=== PATIENT | male | born 1935 | race Caucasian/White ===

== ENCOUNTER 2016-06-14 20:56 | Inpatient (IN) | payer OTHER ==
[~2016-06-14] VITALS: Ht 172.7 cm; Wt 78.5 kg
[2016-06-14] MEDS: SODIUM CHLORIDE 0.9% 1,000ML IVBOLUS ONE ×2 (19:55→21:55)
[~2016-06-14 20:56] MED LIST: ALLO100T30 PO; AMLO10TA2 PO; ASPI-496 PO; MORP30TA3 PO; NITR0.4T8 SL; SENN8.6T4 PO; TADA5TAB2 PO
[2016-06-14] MEDS ORDERED: SODIUM CHLORIDE FLUSH 10ML SYR IVF ONE (21:30)
[2016-06-14] MEDS ORDERED: ALBUTEROL/IPRATROPIUM 2.5MG/0.5MG, 3 ML ONE (21:54)
[2016-06-14] MEDS ORDERED: methylPREDNISolone SOD SUCC 125 MG/2 ML IVP ONE (22:00)
[2016-06-14] MEDS ORDERED: ALBUTEROL/IPRATROPIUM 2.5MG/0.5MG, 3 ML NPPB ONE (22:00)
[2016-06-14] MEDS ORDERED: CEFTRIAXONE PMX 1GM/50ML 50 ML IVPB ONE (22:00)
[2016-06-14] MEDS ORDERED: AZITHROMYCIN 500 MG in SODIUM CHLORIDE 0.9% 250 ML IVPB ONE (22:00)
[2016-06-14 22:17] LABS: IS PT STATUS REG ER OR PRE ER? YES
[2016-06-14] MEDS ORDERED: CEFTRIAXONE PMX 1GM/50ML 50 ML ONE (22:27)
[2016-06-14] MEDS ORDERED: methylPREDNISolone SOD SUCC 125 MG/2 ML ONE (22:27)
[2016-06-14 22:34] LABS: ASPARTATE AMINO TRANSFERASE 27 U/L (15-37); BLOOD UREA NITROGEN 28 mg/dL (7-18)
[2016-06-14] MEDS ORDERED: ATOR20TA9 PO (23:16)
[2016-06-14] MEDS ORDERED: METO25TA35 PO (23:16)
[2016-06-14] MEDS ORDERED: CLOP75TA22 PO (23:17)
[2016-06-14] MEDS ORDERED: LOSA1TAB17 PO (23:18)
[2016-06-15 01:20] VITALS: BP 121/46
[2016-06-15] MEDS ORDERED: MAGNESIUM HYDROXIDE 8%, 30ML UDC PO PRN (03:00)
[2016-06-15] MEDS ORDERED: ONDANSETRON 2MG/ML, 2ML IVPush PRN (03:00)
[2016-06-15] MEDS ORDERED: ALUMINUM/MAG/SIMETHICONE 30 ML UDC PO PRN (03:00)
[2016-06-15] MEDS ORDERED: NITROGLYCERIN 0.4 MG BOTTLE (25 TABS) SL PRN (03:00)
[2016-06-15] MEDS ORDERED: ALBUTEROL/IPRATROPIUM 2.5MG/0.5MG, 3 ML NPPB PRN (04:00)
[2016-06-15 04:43] VITALS: BP 100/56
[2016-06-15] MEDS: ASPIRIN 81 MG TABLET EC PO SCH (04:44)
[2016-06-15] MEDS: ENOXAPARIN 40 MG/0.4 ML SQ SCH (04:44)
[2016-06-15] MEDS: METOPROLOL TARTRATE 25 MG TABLET PO SCH ×2 (04:45→18:46)
[2016-06-15 05:35] LABS: BLOOD UREA NITROGEN 29 mg/dL (7-18)
[2016-06-15] MEDS: NS + 20MEQ KCL 1,000 ML IV SCH ×2 (06:00→16:24)
[2016-06-15] MEDS: ALBUTEROL/IPRATROPIUM 2.5MG/0.5MG, 3 ML NPPB SCH ×4 (07:05→19:35)
[2016-06-15 07:15] VITALS: BP 114/52
[2016-06-15] MEDS: CLOPIDOGREL 75 MG TABLET PO SCH (09:19)
[2016-06-15] MEDS: ATORVASTATIN 20 MG TABLET PO SCH (09:19)
[2016-06-15] MEDS: LOSARTAN 50MG TABLET PO SCH (09:20)
[2016-06-15] MEDS: HYDROCHLOROTHIAZIDE 25 MG TABLET PO SCH (09:20)
[2016-06-15] MEDS: ALLOPURINOL 300 MG TABLET PO SCH (09:20)
[2016-06-15] MEDS: AMLODIPINE 5 MG TABLET PO SCH (09:20)
[2016-06-15] MEDS: FLUTICASONE/VILANTEROL 100-25MCG/INH INH SCH (09:41)
[2016-06-15 13:48] VITALS: BP 103/50
[2016-06-15 19:25] VITALS: BP 129/54
[2016-06-15] MEDS: ZOLPIDEM 5MG TABLET PO PRN (21:50)
[2016-06-15] MEDS: CEFTRIAXONE PMX 1GM/50ML 50 ML IV SCH (23:42)
[2016-06-16] MEDS: ZOLPIDEM 5MG TABLET PO PRN ×3 (00:01→23:20)
[2016-06-16] MEDS: AZITHROMYCIN 500 MG in SODIUM CHLORIDE 0.9% 250 ML IV SCH (00:37)
[2016-06-16 01:18] VITALS: BP 109/52
[2016-06-16] MEDS: NS + 20MEQ KCL 1,000 ML IV SCH ×2 (02:28→17:30)
[2016-06-16] MEDS: ASPIRIN 81 MG TABLET EC PO SCH (05:03)
[2016-06-16] MEDS: ENOXAPARIN 40 MG/0.4 ML SQ SCH ×2 (05:03→21:34)
[2016-06-16] MEDS: METOPROLOL TARTRATE 25 MG TABLET PO SCH ×2 (05:03→18:35)
[2016-06-16 06:11] LABS: BLOOD UREA NITROGEN 32 mg/dL (7-18)
[2016-06-16 06:13] LABS: ASPARTATE AMINO TRANSFERASE 29 U/L (15-37)
[2016-06-16 06:28] LABS: DIFF TOTAL CELLS COUNTED 100 CELL DIFF
[2016-06-16 06:30] LABS: VERIFY COUNTS? YES
[2016-06-16] MEDS: ALBUTEROL/IPRATROPIUM 2.5MG/0.5MG, 3 ML NPPB SCH ×4 (06:53→20:00)
[2016-06-16 07:05] VITALS: BP 112/57
[2016-06-16] MEDS: ATORVASTATIN 20 MG TABLET PO SCH (08:48)
[2016-06-16] MEDS: CLOPIDOGREL 75 MG TABLET PO SCH (08:48)
[2016-06-16] MEDS: AMLODIPINE 5 MG TABLET PO SCH (08:48)
[2016-06-16] MEDS: ALLOPURINOL 300 MG TABLET PO SCH (08:48)
[2016-06-16] MEDS: FLUTICASONE/VILANTEROL 100-25MCG/INH INH SCH (08:49)
[2016-06-16] MEDS: LOSARTAN 50MG TABLET PO SCH (08:49)
[2016-06-16] MEDS: HYDROCHLOROTHIAZIDE 25 MG TABLET PO SCH (08:49)
[2016-06-16 12:30] VITALS: BP 86/26
[2016-06-16 13:15] VITALS: BP 121/53
[2016-06-16] MEDS: metroNIDAZOLE 500 MG TABLET PO SCH ×2 (15:12→21:30)
[2016-06-16 18:35] VITALS: BP 109/51
[2016-06-16] MEDS: POTASSIUM CHLORIDE 10 MEQ TABLET.ER PO SCH (21:34)
[2016-06-16] MEDS: CEFTRIAXONE PMX 1GM/50ML 50 ML IV SCH (23:21)
[2016-06-17] MEDS: AZITHROMYCIN 500 MG in SODIUM CHLORIDE 0.9% 250 ML IV SCH (01:02)
[2016-06-17 01:12] VITALS: BP 99/32
[2016-06-17] MEDS: NS + 20MEQ KCL 1,000 ML IV SCH ×2 (04:00→14:00)
[2016-06-17] MEDS: metroNIDAZOLE 500 MG TABLET PO SCH (05:30)
[2016-06-17] MEDS: METOPROLOL TARTRATE 25 MG TABLET PO SCH (05:59)
[2016-06-17] MEDS: ASPIRIN 81 MG TABLET EC PO SCH (05:59)
[2016-06-17 06:33] LABS: ASPARTATE AMINO TRANSFERASE 70 U/L (15-37); BLOOD UREA NITROGEN 22 mg/dL (7-18)
[2016-06-17] MEDS: ALBUTEROL/IPRATROPIUM 2.5MG/0.5MG, 3 ML NPPB SCH ×3 (07:00→15:00)
[2016-06-17 08:40] VITALS: BP 123/70
[2016-06-17] MEDS: CLOPIDOGREL 75 MG TABLET PO SCH (09:06)
[2016-06-17] MEDS: HYDROCHLOROTHIAZIDE 25 MG TABLET PO SCH (09:06)
[2016-06-17] MEDS: ALLOPURINOL 300 MG TABLET PO SCH (09:06)
[2016-06-17] MEDS: AMLODIPINE 5 MG TABLET PO SCH (09:06)
[2016-06-17] MEDS: POTASSIUM CHLORIDE 10 MEQ TABLET.ER PO SCH (09:06)
[2016-06-17] MEDS: ATORVASTATIN 20 MG TABLET PO SCH (09:06)
[2016-06-17] MEDS: FLUTICASONE/VILANTEROL 100-25MCG/INH INH SCH (09:07)
[2016-06-17] MEDS: LOSARTAN 50MG TABLET PO SCH (09:07)
[2016-06-17 13:30] VITALS: BP 144/72
[2016-06-17] MEDS ORDERED: FLUT1AER INH (14:02)
== END 2016-06-17 15:30 | disposition home or self-care (01) | DRG 682 ==
LOC: ED 23:00 → EDIP 23:01 → ED 23:17 → 4WST 06-15 01:19
PROVIDERS: ADMIT Internal Medicine; ATTEND Internal Medicine
DX: N17.9 Acute kidney failure, unspecified (principal); J15.9 Unspecified bacterial pneumonia; J96.91 Respiratory failure, unspecified with hypoxia; J44.1 Chronic obstructive pulmonary disease with (acute) exacerbation; F11.20 Opioid dependence, uncomplicated; J44.0 Chronic obstructive pulmonary disease with (acute) lower respiratory infection; E78.5 Hyperlipidemia, unspecified; E86.1 Hypovolemia; E87.6 Hypokalemia; F17.210 Nicotine dependence, cigarettes, uncomplicated; G89.29 Other chronic pain; I25.10 Atherosclerotic heart disease of native coronary artery without angina pectoris; I10 Essential (primary) hypertension; I25.2 Old myocardial infarction; F12.90 Cannabis use, unspecified, uncomplicated; I95.9 Hypotension, unspecified; I48.91 Unspecified atrial fibrillation; R19.7 Diarrhea, unspecified; M10.9 Gout, unspecified; M48.00 Spinal stenosis, site unspecified; Z96.1 Presence of intraocular lens; Z79.82 Long term (current) use of aspirin; Z79.899 Other long term (current) drug therapy; Z82.49 Family history of ischemic heart disease and other diseases of the circulatory system; Z95.1 Presence of aortocoronary bypass graft; Z95.5 Presence of coronary angioplasty implant and graft; Z98.41 Cataract extraction status, right eye; Z98.42 Cataract extraction status, left eye; Z90.49 Acquired absence of other specified parts of digestive tract; Z84.1 Family history of disorders of kidney and ureter; Z60.2 Problems related to living alone
CPT/HCPCS: 36415; 71010; 80048; 80053; 82962; 83605; 84145; 84484; 85025; 87040; 87324; 93005; 94640; 96365; 96367; 96375; J0456; J0696; J1650; J3480; J7620; J2930; J7030; J7050